=== PATIENT | male | born 1975 ===

== ENCOUNTER 2017-05-14 13:43 | Emergency (ER) | payer OTHER, BC ==
[2017-05-14 13:43] VITALS: BMI 28.8
[2017-05-14 14:06] VITALS: TEMP 98; O2SAT 97
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
[2017-05-14 16:05] VITALS: BP 124/68; PULSE 72; RESP 14
== END 2017-05-14 15:53 | disposition home or self-care (01) ==
LOC: H.ER 13:43
DX: S13.4XXA Sprain of ligaments of cervical spine, initial encounter (principal); V43.62XA Car passenger injured in collision with other type car in traffic accident, initial encounter; Y92.410 Unspecified street and highway as the place of occurrence of the external cause
CPT/HCPCS: 72125; 96372; 99284; J1885